=== PATIENT | male | born 1985 | race Caucasian/White ===

== ENCOUNTER 2021-10-17 12:15 | Outpatient (CLI) | payer OTHER, SELFPAY ==
--- NOTE | ~2021-10-17 | US_ITS ---
EXAMINATION: US biopsy lymph node DATE: 10/17/2021 14:07 INDICATION: Left cervical lymphadenopathy. TECHNIQUE: The procedure including the risks, benefits, and alternatives was discussed with the patie nt. Risks discussed included bleeding and infection. The patient understood the risks and agreed to p roceed. The skin overlying the left neck was prepped and draped in usual sterile fashion. Anesthetic was administered with 1% lidocaine subcutaneously. An 18 gauge core biopsy needle was then used to obtain 6 core biopsy specimens under continuous sonographic guidance. The entry site was cleaned and dressed. There were no immediate complications. FINDINGS: Ultrasound images demonstrate the needle in an enlarged left internal jugular chain lymph n ode. IMPRESSION: 1. Ultrasound-guided core needle biopsy of an enlarged left internal jugular chain lymph node. Reviewed, dictated and finalized at location A. IMPRESSION: 1. Ultrasound-guided core needle biopsy of an enlarged left internal jugular ch ain lymph node.
== END 2021-10-17 12:16 | disposition home or self-care (01) ==
DX: R59.0 Localized enlarged lymph nodes (principal)
CPT/HCPCS: 38505; 76942; 88184; 88305; 88341; 88342; 88365

== ENCOUNTER 2021-12-16 01:48 | Day surgery (SDC) | payer OTHER, SELFPAY ==
[2021-12-12 15:08] VITALS: BMI 36.4
--- NOTE | 2021-12-12 15:13 | PC.NURSE ---
PRE-OP INSTRUCTIONS, PLEASE READ CAREFULLY Report to the SURGERY CENTER located off [facility] ('[address]) at time _0930_ on date _12/16/21_. Planned Procedure Time: _1130_. Time changes happen often and if your time is changed the preop area will call you the afternoon before. - You and your visitor will be asked to self-screen and do not enter if you have any COVID symptoms. - We encourage only one visitor and NO visitors under age 16 are allowed at this time. Your visitor will receive communication by the phone number that is given day of service. - The patient visitor is requested to social distance or may leave the building when not with patient due to restrictions. - A mask is required within the hospital. Patients may have clear liquids (water, carbonated beverages, clear teas, apple juice) until 3 hours prior to surgery (0830 AM) with a maximum of 20 ounces. - No food from midnight until time of surgery Take the following medications with a SIP of water the morning of surgery: _CARVEDILOL, 1/2 AM INSULIN DOSE_ Medications to discontinue - _ASPIRIN PER DR. FALK'S INSTRUCTIONS_ Please no make-up, nail albanian, hairspray, perfume, deodorant, or body powder the day of surgery. No jewelry (including any body piercings) or valuables the day of surgery, leave them at home. Please take a shower or bath the night before, or the morning of, surgery with an antibacterial soap. Wear comfortable, loose fitting clothing. - Jewelry must be removed prior to entering the operating room. Rings and piercings that are not removed may be cut off. - The hospital will not accept responsibility for valuables. - Please leave all valuables, including medications, at home the day of surgery. If you are going home after surgery, a licensed transport driver must drive you home. - NO public transportation without another adult. - We recommend that an adult stay with you for 24 hours following discharge. - We also recommend that you do not drive, make important decision, drink alcoholic beverages, or take any drugs that were not prescribed by your health care provider for at least 24 hours after your discharge time. Follow any additional instructions given to you from your surgeon. If you or anyone have experienced Covid symptoms in the past week, please notify your surgeon or the nurse liaison at the phone number below for possible testing. Instructions faxed to _[email or web address]_and asked if any additional questions and then verbalized understanding. Patient advised to call surgeon office or pre surgery nurse liaison [phone] if any additional questions.
--- NOTE | 2021-12-13 16:45 | P.HP_ITS ---
H&P: HPI History of Present Illness Date/Time: 12/13/21 16:45 Chief Complaint: left neck mass Narrative: planned surgical procedure Review of Systems Review of Systems: All systems reviewed & are unremarkable except as noted in HPI and below [facility] Social History Social History (Updated 11/18/21 @ 13:05 by Eloise Polk [facility]) Smoking status: Never smoker Meds Home Medications and Allergies Home Medications Medication Instructions Recorded Confirmed Type aspirin 81 mg tablet,delayed 81 mg PO DAILY 12/12/21 12/12/21 History release atorvastatin 10 mg tablet 10 mg PO DAILY 12/12/21 12/12/21 History carvedilol 6.25 mg tablet 6.25 mg PO BID 12/12/21 12/12/21 History insulin NPH, beef-pork 100 unit/mL 24 unit subcut BID 12/12/21 12/12/21 History subcutaneous suspension insulin NPH-reg hum semi-syn 100 See Rx Instructions .Route .COMPLEX 12/12/21 12/12/21 History unit/mL(70-30) subcutaneous cartridge lisinopril 10 mg tablet 10 mg PO HS 12/12/21 12/12/21 History metformin 500 mg tablet 500 mg PO BID 12/12/21 12/12/21 History triamcinolone acetonide 0.1 % See Rx Instructions .Route .COMPLEX 12/12/21 12/12/21 History topical ointment and silicone sheet Allergies Allergy/AdvReac Type Severity Reaction Status Date / Time No Known Allergies Allergy Unverified 12/12/21 15:06 Exam Narrative: left neck mass Assessment and Plan Assessment and plan (1) Mass of left side of neck: Code(s): R22.1 - Localized swelling, mass and lump, neck Status: Acute Plan plan excisional biopsy left neck mass risks discussed including infection numbness in the area damage to the marginal mandibular nerve need for further procedures failure to achieve diagnosis. Patient voiced understanding and agreed.
--- NOTE | 2021-12-16 07:14 | WPDHPUPDATE1 ---
History and Physical Update Update Date/Time: 12/16/21 07:14 History and Physical has been reviewed, including an updated exam of the patient. There are NO changes in the patient's condition. Risks, benefits, and alternatives have been discussed and questions answered. Patient agrees to proceed with procedure.
--- NOTE | 2021-12-16 09:11 | ECG_ITS ---
Measurements Intervals [place] Rate: 70 P: 61 NE: 183 QRS: 51 QRSD: 92 T: 53 QT: 376 QTc: 407 Interpretive Statements SINUS RHYTHM NONSPECIFIC T-WAVE ABNORMALITY BORDERLINE ECG NO PREVIOUS ECG AVAILABLE FOR COMPARISON Electronically Signed On 12-16-2021 16:45:33 CDT by Con Lara M.D.
[2021-12-16 09:34] VITALS: BP 147/85; PULSE 73; RESP 16; TEMP 36.3; O2SAT 100
[2021-12-16] MEDS: LACTATED RINGERS 1,000 ML 30 ML IV CONT ×2 (10:36→13:12)
[2021-12-16 10:41] LABS: Glucose Point of Care 86 mg/dl (65-105)
--- NOTE | 2021-12-16 10:57 | WPDANESEPPF ---
Anes - Initial Pre Proc Eval Procedure: Operation Date: 12/16/21 12:15 Proposed Procedures p Excisional Biopsy Left Neck Mass - Ulises Joy MD Date/Time: 12/16/21 10:57 Surgeon: Ulises Joy MD Pre Op Diagnosis: Left Neck Mass Patient Data Age: 36 Gender: M Height: 1.93 m Weight: 130.8 kg Last Vital Signs Temp 36.3 C L 12/16/21 09:34 Pulse 73 12/16/21 09:34 Resp 16 12/16/21 09:34 BP 147/85 H 12/16/21 09:34 Pulse Ox 100 12/16/21 09:34 O2 Del Method Room Air 12/16/21 09:34 Allergies Allergy/AdvReac Type Severity Reaction Status Date / Time No Known Allergies Allergy Unverified 12/16/21 10:17 Home Medications Medication Instructions Recorded Confirmed Type aspirin 81 mg tablet,delayed 81 mg PO DAILY 12/12/21 12/16/21 History release atorvastatin 10 mg tablet 10 mg PO DAILY 12/12/21 12/16/21 History carvedilol 6.25 mg tablet 6.25 mg PO BID 12/12/21 12/16/21 History insulin NPH, beef-pork 100 unit/mL 24 unit subcut BID 12/12/21 12/16/21 History subcutaneous suspension insulin NPH-reg hum semi-syn 100 See Rx Instructions .Route .COMPLEX 12/12/21 12/16/21 History unit/mL(70-30) subcutaneous cartridge lisinopril 10 mg tablet 10 mg PO HS 12/12/21 12/16/21 History metformin 500 mg tablet 500 mg PO BID 12/12/21 12/16/21 History triamcinolone acetonide 0.1 % See Rx Instructions .Route .COMPLEX 12/12/21 12/16/21 History topical ointment and silicone sheet Laboratory Tests 12/16/21 12/16/21 09:38 10:36 Sodium Pending Potassium Pending Chloride Pending Carbon Dioxide Pending Anion Gap Pending BUN Pending Creatinine Pending Estim Creat Clear Calc Pending Estimated GFR Pending Glucose Pending POC Capillary Glucose 86 mg/dl mg/dl (65-105) Calcium Pending Patient hx anesthesia problems: none Family hx anesthesia problems: none Results Review: All pre-operative results and documents have been reviewed as part of the pre-operative evaluation. [facility] Past Medical History Medical History (Updated 12/16/21 @ 11:00 by Russell Gimenez MD) Diabetes HTN (hypertension) Hyperlipidemia Social History Social History Smoking status: Never smoker Anes - Eval Final PreProcedure Day of Procedure 12/16/21 10:57 Patient weight: obese Heart: regular rate and rhythm Lungs: clear to auscultation Airway: Mallampati scale class II Neurological: alert and oriented Last oral intake: >/= 8 hours ASA classification: III Emergent: no Anesthetic plan: proceed Anesthesia type and monitoring: general ETT and standard monitoring Results Review: All pre-operative results and documents have been reviewed as part of the pre-operative evaluation. Informed Consent: The patient's anesthetic plan and its attendant risks and benefits were discussed with the patient/family/POA. Questions were solicited and answers provided to the satisfaction of the patient/family/POA.
[2021-12-16] MEDS: ceFAZolin 3 GM/D5W 100 ML 100 ML IVPB (11:55)
--- NOTE | 2021-12-16 13:11 | P.OP_ITS ---
Procedure Note - Detailed Date of Procedure 12/16/21 Pre-op Diagnosis Left Neck Mass Post-op Diagnosis Same Procedure Performed Excisional biopsy of left neck mass submandibular Surgeon Ulises Joy MD Anesthesia General Indications see above likely , likely malignancy Findings soft pale tissue large mass in the submandibular region greater than 1 cm cube sent for pathologic analysis. Description of Procedure Patient identified consent verified. Patient brought operating room. Time- out performed. General anesthesia induced endotracheal tube secured. Patient prepped draped position. Second time-out Performed . Incision made greater than 2 fingerbreadths below the mandible over the lesion. Incision was about 3 cm sorry 5 cm long over a pre drawn surgical incision and this was a course injected with 2 cc 1% lidocaine 1 100,000 parts epinephrine. Bovie electrocautery at a setting of 10 than 5 as we neared the marginal mandibular nerve was utilized to cut through the subcutaneous tissue and platysma blunt dissection was carried around the very obvious mass. The mass was incredibly friable and was difficult to the obtain very large pieces but about total of 2 cc were obtained bleeding was controlled with irrigation and bipolar electrocautery at a setting of 5. The deep layer and dermis was closed with interrupted 3 0 Vicryl sutures. Total blood loss probably 5 cc. The skin was glued close. Care the patient given Anesthesiology I performed all dictated portions of the procedure. The nerve marginal mandibular, was identified above the operative field and was retracted superiorly. There were no immediate complications patient taken to PACU. Estimated Blood Loss 5 Drains No Packing No Pathology Yes Complications No immediate complications Condition Stable Disposition PACU
[2021-12-16 13:12] VITALS: BP 120/67; PULSE 88; RESP 13; TEMP 36.5; O2SAT 99
[2021-12-16 13:28] VITALS: BP 105/83; PULSE 84; RESP 15; O2SAT 99
[2021-12-16 13:36] VITALS: BP 131/80; PULSE 83; RESP 17; O2SAT 99
[2021-12-16 13:39] VITALS: BP 121/57; PULSE 82; RESP 16
[2021-12-16 13:54] LABS: Glucose Point of Care 110 mg/dl (65-105)
[2021-12-16 14:00] VITALS: BP 123/73; PULSE 81; RESP 16
== END 2021-12-16 14:14 | disposition home or self-care (01) ==
PROVIDERS: Visit Provider Otolaryngology
PROC: (CPT 21555; principal; 2021-12-16 12:15)
DX: R22.1 Localized swelling, mass and lump, neck (principal); I10 Essential (primary) hypertension; E11.9 Type 2 diabetes mellitus without complications; E78.5 Hyperlipidemia, unspecified; E66.9 Obesity, unspecified; Z68.35 Body mass index [BMI] 35.0-35.9, adult; Z79.82 Long term (current) use of aspirin; Z79.4 Long term (current) use of insulin; Z79.84 Long term (current) use of oral hypoglycemic drugs
CPT/HCPCS: 21555; 36415; 82948; 88184; 88304; 88341; 88342; 93005; A9270; J0690; J1100; J2250; J2405; J2704; J3010; J7120